=== PATIENT | male | born 1940 | race Caucasian/White ===

== ENCOUNTER 2023-09-04 11:34 | Day surgery (SDC) | payer MEDICARE ==
[2023-09-04] VITALS (12 sets, daily range): BP systolic 119–160; BP diastolic 67–101; PULSE 60–85; RESP 9–19; TEMP 98; O2SAT 92–98
[~2023-09-04] VITALS: Ht 172.7 cm; Wt 82.8 kg
[2023-09-04] MEDS ORDERED: diphenhydrAMINE 25mg capsule PO PRN (11:40)
[2023-09-04] MEDS ORDERED: normal saline 1,000 ML IV SCH (11:40)
[2023-09-04] MEDS ORDERED: iohexol 350MG/ML 100ml bottle IV ONE ×3 (12:03→14:16)
[2023-09-04] MEDS ORDERED: LIDOcaine 1% 30ml preserv. free vial ONE (12:03)
[2023-09-04] MEDS ORDERED: verapamil 2.5 mg/ml inj IV ONE (12:03)
[2023-09-04] MEDS ORDERED: iohexol 350 MG/ML 50ML vial IV ONE (12:03)
[2023-09-04] MEDS ORDERED: fentaNYL/PF 50MCG/1 ML 2ML syringe ONE (12:03)
[2023-09-04] MEDS ORDERED: heparin 1,000unit/ml 10ml vial 10 ML ONE (12:03)
[2023-09-04] MEDS ORDERED: midazolam 1 mg/ML 2ml injection ONE ×3 (12:03→14:28)
[2023-09-04] MEDS ORDERED: DICL100G59 TOP (12:07)
[2023-09-04] MEDS ORDERED: SIMV-45 PO (12:07)
[2023-09-04] MEDS ORDERED: CLOP75TA34 PO (12:07)
[2023-09-04] MEDS ORDERED: FLO0.4C PO (12:07)
[2023-09-04] MEDS ORDERED: HYDR-3972 PO (12:07)
[2023-09-04] MEDS ORDERED: LORA-268 PO (12:07)
[2023-09-04] MEDS ORDERED: METO-395 PO (12:07)
[2023-09-04] MEDS ORDERED: LOSA25TA41 PO (12:07)
[2023-09-04] MEDS ORDERED: MELO-102 PO (12:07)
[2023-09-04] MEDS ORDERED: nitroGLYCERIN 500mcg/5mL D5W 5 ML IV ONE (12:24)
[2023-09-04 12:26] LABS: ALBUMIN 3.4 G/DL (3.4-5.0); ANION GAP 9 (8-16); BLOOD UREA NITROGEN 18 MG/DL (7-18); CALCIUM 8.9 MG/DL (8.5-10.1); CHLORIDE 106 MMOL/L (99-107); CREATININE 0.75 MG/DL (0.60-1.10); GLUCOSE 97 MG/DL (70-104); SODIUM 139 MMOL/L (135-145); TOTAL CARBON DIOXIDE 24.5 MMOL/L (24-32); eCRCL 75 ML/MIN; eGFR > 90 ML/MIN
[2023-09-04 12:27] LABS: INR 0.9 INR; PROTHROMBIN TIME 10.1 SECONDS (9.0-12.0)
[2023-09-04 12:33] LABS: HEMATOCRIT 48.4 % (42.0-52.0); HEMOGLOBIN 16.4 g/dl (14.0-17.9); MEAN CORPUSCULAR HGB CONC 33.9 g/dL (33.0-36.5); MEAN PLATELET VOLUME 7.2 FL (7.4-10.4); PLATELET COUNT 175 X10'3 (140-440); WHITE BLOOD COUNT 6.9 X10'3 (4.5-11.0)
[2023-09-04 12:35] LABS: BASOPHILS % (AUTO) 0.4 % (0-1); EOSINOPHILS # (AUTO) 0.2 X10'3 (0-0.9); EOSINOPHILS % (AUTO) 2.3 % (0-6); LYMPHOCYTES # (AUTO) 1.4 X10'3 (1.1-4.8); LYMPHOCYTES % (AUTO) 19.9 % (21-51); MEAN CORPUSCULAR HEMOGLOBIN 33.3 PG (27.0-31.0); MEAN CORPUSCULAR VOLUME 98.3 FL (78-98); MONOCYTES # (AUTO) 0.7 X10'3 (0-0.9); MONOCYTES % (AUTO) 9.8 % (2-12); NEUTROPHILS # (AUTO) 4.7 X10'3 (1.8-7.7); NEUTROPHILS % (AUTO) 67.6 % (42-75); RED BLOOD COUNT 4.92 X10'6 (4.70-6.10); RED CELL DISTRIBUTION WIDTH 14.6 % (11.5-14.5)
[2023-09-04] MEDS ORDERED: heparin 1,000 UNITS/NS 500ml 500 ML ONE (14:46)
[2023-09-04] MEDS ORDERED: clopidogrel 300mg tablet ONE (15:01)
== END 2023-09-04 19:15 | disposition home or self-care (01) ==
LOC: SSTAY O 11:34
PROVIDERS: ATTEND Internal Medicine Cardiovascular Disease
DX: I35.0 Nonrheumatic aortic (valve) stenosis (principal); I25.110 Atherosclerotic heart disease of native coronary artery with unstable angina pectoris; I10 Essential (primary) hypertension; E78.5 Hyperlipidemia, unspecified; G47.30 Sleep apnea, unspecified; F12.90 Cannabis use, unspecified, uncomplicated; Z86.73 Personal history of transient ischemic attack (TIA), and cerebral infarction without residual deficits; Z79.899 Other long term (current) drug therapy; Z90.49 Acquired absence of other specified parts of digestive tract; Z96.651 Presence of right artificial knee joint
CPT/HCPCS: 36415; 80048; 83735; 85025; 85610; 93005; 93306; 93460; 99152; 99153; C1874; C9600; J1644; J2250; J3010; J3490; J7030; Q9967; A6402; A6449; C1725; C1751; C1769; C1894

== ENCOUNTER 2024-02-08 10:24 | Day surgery (SDC) | payer MEDICARE ==
[~2024-02-08] VITALS: Ht 172.7 cm; Wt 84.1 kg
[2024-02-08] VITALS (10 sets, daily range): BP systolic 114–168; BP diastolic 68–94; PULSE 75–83; RESP 12–19; TEMP 97.4; O2SAT 95–98
[~2024-02-08 10:24] MED LIST: CLOP75TA34 PO; DICL100G59 TOP; FLO0.4C PO; HYDR-3972 PO; LORA-268 PO; LOSA25TA41 PO; MELO-102 PO; METO-395 PO; SIMV-45 PO
[2024-02-08] MEDS ORDERED: VIT1CAPS9 PO (11:08)
[2024-02-08] MEDS ORDERED: ASCO100031 PO (11:08)
[2024-02-08] MEDS ORDERED: MAGN400C PO (11:08)
[2024-02-08] MEDS ORDERED: FURO20TA4 PO (11:08)
[2024-02-08] MEDS ORDERED: Calcium (11:08)
[2024-02-08] MEDS ORDERED: POTA-188 PO (11:08)
[2024-02-08] MEDS ORDERED: tumeric (11:08)
[2024-02-08] MEDS ORDERED: OMEG100037 PO (11:08)
[2024-02-08] MEDS ORDERED: ZINC220T3 PO (11:08)
[2024-02-08] MEDS ORDERED: CHOL500049 PO (11:08)
[2024-02-08] MEDS ORDERED: ASPI81TA52 PO (11:08)
[2024-02-08 11:09] LABS: BASOPHILS % (AUTO) 0.4 % (0-1); EOSINOPHILS # (AUTO) 0.1 X10'3 (0-0.9); EOSINOPHILS % (AUTO) 0.9 % (0-6); HEMATOCRIT 50.5 % (42.0-52.0); HEMOGLOBIN 17.1 g/dl (14.0-17.9); LYMPHOCYTES # (AUTO) 1.4 X10'3 (1.1-4.8); LYMPHOCYTES % (AUTO) 19.1 % (21-51); MEAN CORPUSCULAR HEMOGLOBIN 33.2 PG (27.0-31.0); MEAN CORPUSCULAR VOLUME 97.6 FL (78-98); MEAN PLATELET VOLUME 7.1 FL (7.4-10.4); MONOCYTES # (AUTO) 0.7 X10'3 (0-0.9); MONOCYTES % (AUTO) 9.6 % (2-12); NEUTROPHILS # (AUTO) 5.1 X10'3 (1.8-7.7); PLATELET COUNT 177 X10'3 (140-440); RED BLOOD COUNT 5.17 X10'6 (4.70-6.10); RED CELL DISTRIBUTION WIDTH 14.3 % (11.5-14.5); WHITE BLOOD COUNT 7.3 X10'3 (4.5-11.0)
[2024-02-08] MEDS ORDERED: sodium bicarbonate 1meq/ml syr 150 ML in dextrose 5%-water 1,000 ML IV ONE (11:10)
[2024-02-08] MEDS: diphenhydrAMINE 25mg capsule PO PRN (11:20)
[2024-02-08 11:21] LABS: APTT 27 SECONDS (22-32); PROTHROMBIN TIME 10.1 SECONDS (9.0-12.0)
[2024-02-08] MEDS: normal saline 1,000 ML IV SCH (11:21)
[2024-02-08] MEDS ORDERED: iohexol 350MG/ML 100ml bottle IV ONE ×2 (11:23→12:06)
[2024-02-08] MEDS ORDERED: verapamil 2.5 mg/ml inj IV ONE (11:23)
[2024-02-08] MEDS ORDERED: fentaNYL/PF 50MCG/1 ML 2ML syringe ONE (11:23)
[2024-02-08] MEDS ORDERED: midazolam 1 mg/ML 2ml injection ONE ×2 (11:23→11:56)
[2024-02-08] MEDS ORDERED: iohexol 350 MG/ML 50ML vial IV ONE (11:23)
[2024-02-08] MEDS ORDERED: heparin 1,000unit/ml 10ml vial 10 ML ONE (11:23)
[2024-02-08] MEDS ORDERED: LIDOcaine 1% (10mg/ml) 2ml vial ONE (11:23)
[2024-02-08] MEDS ORDERED: nitroGLYCERIN 500mcg/5mL D5W 5 ML IV ONE (11:27)
[2024-02-08] MEDS ORDERED: LIDOcaine 1% 30ml preserv. free vial ONE (11:41)
[2024-02-08 11:51] LABS: ALBUMIN 3.5 G/DL (3.4-5.0); ANION GAP 11 (8-16); BLOOD UREA NITROGEN 21 MG/DL (7-18); BUN/CREATININE RATIO 23.6 (10.0-20.0); CHLORIDE 106 MMOL/L (99-107); CREATININE 0.89 MG/DL (0.60-1.10); GLUCOSE 111 MG/DL (70-104); POTASSIUM 4.1 MMOL/L (3.5-5.1); SODIUM 140 MMOL/L (135-145); TOTAL CARBON DIOXIDE 22.7 MMOL/L (24-32); eCRCL 63 ML/MIN; eGFR 82 ML/MIN
[2024-02-08] MEDS ORDERED: heparin 1,000 UNITS/NS 500ml 500 ML ONE (12:36)
[2024-02-08] MEDS ORDERED: protamine sulfate 10mg/ml inj. ONE (12:49)
== END 2024-02-08 16:35 | disposition home or self-care (01) ==
LOC: CATH LAB 10:24 → SSTAY O 16:35
PROVIDERS: ATTEND Internal Medicine Cardiovascular Disease
DX: I25.118 Atherosclerotic heart disease of native coronary artery with other forms of angina pectoris (principal); I35.8 Other nonrheumatic aortic valve disorders; I44.7 Left bundle-branch block, unspecified; I51.7 Cardiomegaly; Z79.01 Long term (current) use of anticoagulants; Z79.899 Other long term (current) drug therapy
CPT/HCPCS: 36415; 80048; 83735; 85025; 85610; 85730; 92920; 93005; 93306; 93460; 99152; 99153; J1644; J2250; J2720; J3010; J3490; J7030; Q0163; Q9967; 96360; A4615; A6258; C1725; C1751; C1760; C1769; C1894

== ENCOUNTER 2024-02-26 10:26 | Outpatient (CLI) | payer MEDICARE ==
[~2024-02-26 10:26] MED LIST changes: +ASCO100031 PO; +ASPI81TA52 PO; +CHOL500049 PO; +Calcium; -DICL100G59 TOP; +FURO20TA4 PO; -HYDR-3972 PO; +MAGN400C PO; +OMEG100037 PO; +POTA-188 PO; +VIT1CAPS9 PO; +ZINC220T3 PO; +tumeric
[2024-02-26 11:20] LABS: HEMOGLOBIN 16.6 g/dl (14.0-17.9); MEAN PLATELET VOLUME 7.3 FL (7.4-10.4); WHITE BLOOD COUNT 5.8 X10'3 (4.5-11.0)
[2024-02-26 11:22] LABS: BASOPHILS % (AUTO) 0.4 % (0-1); EOSINOPHILS # (AUTO) 0.1 X10'3 (0-0.9); EOSINOPHILS % (AUTO) 1.5 % (0-6); HEMATOCRIT 47.3 % (42.0-52.0); LYMPHOCYTES # (AUTO) 1.5 X10'3 (1.1-4.8); MEAN CORPUSCULAR HEMOGLOBIN 34.2 PG (27.0-31.0); MEAN CORPUSCULAR VOLUME 97.8 FL (78-98); MONOCYTES # (AUTO) 0.6 X10'3 (0-0.9); MONOCYTES % (AUTO) 10.9 % (2-12); NEUTROPHILS # (AUTO) 3.5 X10'3 (1.8-7.7); NEUTROPHILS % (AUTO) 61.2 % (42-75); PLATELET COUNT 198 X10'3 (140-440); RED BLOOD COUNT 4.84 X10'6 (4.70-6.10); RED CELL DISTRIBUTION WIDTH 13.9 % (11.5-14.5)
[2024-02-26 11:36] LABS: APTT 27 SECONDS (22-32); PROTHROMBIN TIME 10.3 SECONDS (9.0-12.0)
[2024-02-26 11:47] LABS: ALANINE AMINOTRANSFERASE 30 U/L (12-78); ALBUMIN 3.4 G/DL (3.4-5.0); ALBUMIN/GLOBULIN RATIO 0.9 (1.1-1.5); ALKALINE PHOSPHATASE 100 IU/L (46-116); ANION GAP 9 (8-16); ASPARTATE AMINO TRANSFERASE 22 U/L (10-37); BILIRUBIN,TOTAL 0.4 MG/DL (0.1-1.0); BLOOD UREA NITROGEN 24 MG/DL (7-18); BUN/CREATININE RATIO 29.6 (10.0-20.0); CALCIUM 8.3 MG/DL (8.5-10.1); CHLORIDE 108 MMOL/L (99-107); CREATININE 0.81 MG/DL (0.60-1.10); GLUCOSE 128 MG/DL (70-104); POTASSIUM 4.2 MMOL/L (3.5-5.1); PRO BRAIN NATRIURETIC PEPTIDE 914 PG/ML (0-450); SODIUM 140 MMOL/L (135-145); TOTAL CARBON DIOXIDE 23.5 MMOL/L (24-32); TOTAL PROTEIN 7.3 G/DL (6.4-8.2); eGFR > 90 ML/MIN
[2024-02-26] MEDS ORDERED: IODIXANOL 320 MG/ML INFUS..BTL 100ML IV ONE (11:49)
[2024-02-26] MEDS ORDERED: metoprolol tartrate 1mg/ml inj IV ONE (12:13)
== END 2024-02-26 23:59 | disposition home or self-care (01) ==
LOC: RAD 10:26
PROVIDERS: ATTEND Internal Medicine Cardiovascular Disease
DX: N28.1 Cyst of kidney, acquired (principal); I35.0 Nonrheumatic aortic (valve) stenosis; R06.02 Shortness of breath; I65.29 Occlusion and stenosis of unspecified carotid artery; I70.0 Atherosclerosis of aorta; K57.90 Diverticulosis of intestine, part unspecified, without perforation or abscess without bleeding; M47.815 Spondylosis without myelopathy or radiculopathy, thoracolumbar region
CPT/HCPCS: 36415; 71046; 71275; 74174; 75572; 80053; 83880; 85025; 85610; 85730; J3490; Q9967

== ENCOUNTER 2024-03-24 10:51 | Inpatient (IN) | payer MEDICARE ==
[2024-03-22 11:44] LABS: BILIRUBIN,URINE NEGATIVE (Neg); CLARITY,URINE CLEAR (Clear); COLOR,URINE YELLOW (Yellow); GLUCOSE, URINE NEGATIVE (Neg); KETONES,URINE NEGATIVE (Neg); LEUKOCYTE ESTERASE ,URINE NEGATIVE (Neg); NITRITES, URINE NEGATIVE (Neg); OCCULT BLOOD,URINE NEGATIVE (Neg); PH,URINE 6.5 (4.8-8.0); PROTEIN,URINE NEGATIVE (Neg); UROBILINOGEN,URINE 0.2 E.U/dL (0.2-1.0)
[2024-03-22 11:47] LABS: BASOPHILS % (AUTO) 0.5 % (0-1); EOSINOPHILS # (AUTO) 0.1 X10'3 (0-0.9); EOSINOPHILS % (AUTO) 1.4 % (0-6); LYMPHOCYTES # (AUTO) 1.7 X10'3 (1.1-4.8); LYMPHOCYTES % (AUTO) 25.9 % (21-51); MEAN CORPUSCULAR HEMOGLOBIN 33.3 PG (27.0-31.0); MEAN CORPUSCULAR HGB CONC 34.2 g/dL (33.0-36.5); MEAN CORPUSCULAR VOLUME 97.2 FL (78-98); MEAN PLATELET VOLUME 7.1 FL (7.4-10.4); MONOCYTES # (AUTO) 0.6 X10'3 (0-0.9); MONOCYTES % (AUTO) 10.1 % (2-12); NEUTROPHILS % (AUTO) 62.1 % (42-75); PRE OP HEMATOCRIT 48.3 % (42.0-52.0); PRE OP HEMOGLOBIN 16.5 g/dL (14.0-17.9); PRE OP PLATELET COUNT 201 X10'3 (140-440); PRE OP WHITE BLOOD COUNT 6.5 10'3 (4.8-10.8); RED BLOOD COUNT 4.97 X10'6 (4.70-6.10)
[2024-03-22 11:49] LABS: UA COLLECTION TYPE CLN CATCH MIDSTREAM
[2024-03-22 11:59] LABS: PRE OP PROTIME 10.3 SECONDS (9.0-12.0)
[2024-03-22 12:09] LABS: ALBUMIN 3.4 G/DL (3.4-5.0); ALBUMIN/GLOBULIN RATIO 0.8 (1.1-1.5); ALKALINE PHOSPHATASE 80 IU/L (46-116); BLOOD UREA NITROGEN 19 MG/DL (7-18); BUN/CREATININE RATIO 21.6 (10.0-20.0); CALCIUM 8.9 MG/DL (8.5-10.1); CHLORIDE 103 MMOL/L (99-107); CREATININE 0.88 MG/DL (0.60-1.10); PRE OP ALT 33 U/L (30-65); PRE OP ANION GAP 9 (8-16); PRE OP AST 30 U/L (10-37); PRE OP BILIRUB, TOTAL 0.6 MG/DL (0.0-1.0); PRE OP GLUCOSE 108 MG/DL (70-104); PRE OP POTASSIUM 3.8 MMOL/L (3.4-5.1); PRE OP SODIUM 136 MMOL/L (135-145); PRO BRAIN NATRIURETIC PEPTIDE 1329 PG/ML (0-450); TOTAL CARBON DIOXIDE 24.1 MMOL/L (24-32); TOTAL PROTEIN 7.5 G/DL (6.4-8.2); eGFR 83 ML/MIN
[~2024-03-24] VITALS: Ht 172.7 cm; Wt 82.8 kg
[2024-03-24] VITALS (20 sets, daily range): BP systolic 117–140; BP diastolic 62–93; PULSE 59–88; RESP 13–18; TEMP 97.7–98; O2SAT 96–98
[2024-03-24] MEDS: cefazolin 2gm/D5W 100mL 100 ML IV ONE (05:30)
[2024-03-24] MEDS: nitroPRUSSIDE (NIPRIDE) (200MCG/ML) 100ML Drip IV SCH (05:30)
[2024-03-24] MEDS: phenylephrine inj 50 MG in normal saline 250ml IV solN IV SCH (05:30)
[2024-03-24] MEDS: DOCUMENT DATE & TIME OF BETA-BLOCKER PO ONE (05:30)
[~2024-03-24 10:51] MED LIST changes: +ACET-2971 PO; +CHOL100025 PO; -CHOL500049 PO; -Calcium; +LIDOcaine 1% (10mg/ml) 2ml vial ONE; -LOSA25TA41 PO; -MAGN400C PO; -MELO-102 PO; +SACU1TAB PO; +VITAMIN B12; -ZINC220T3 PO; +ondansetron/PF 4mg/2ml inj IV PRN
[2024-03-24] MEDS: aspirin 325mg tablet PO ONE (11:29)
[2024-03-24] MEDS: famotidine 20mg tablet PO ONE (11:29)
[2024-03-24] MEDS: ringers solution, lacted 1,000 ML IV SCH ×2 (11:30→14:40)
[2024-03-24] MEDS: vancomycin 1,500 MG in NS 300ml IV soln IV ONE (11:30)
[2024-03-24] MEDS ORDERED: LIDOcaine 1% (10mg/ml) 2ml vial ONE (13:56)
[2024-03-24] MEDS ORDERED: protamine sulfate 10mg/ml inj. ONE ×3 (14:29→14:31)
[2024-03-24] MEDS ORDERED: morphine 2 MG/ML inj. syringe IV PRN (14:40)
[2024-03-24] MEDS ORDERED: hydrALAZINE 20mg/ml inj. IV PRN ×2 (14:40→16:40)
[2024-03-24] MEDS: acetaminophen 1,000mg/100ml IV 100 ML IV ONE (14:40)
[2024-03-24] MEDS ORDERED: labetalol 20mg/4ml (5mg/ml) syringe IV PRN ×2 (14:40→16:40)
[2024-03-24] MEDS ORDERED: meperidine/PF 25mg/ml syringe IV PRN ×3 (14:40)
[2024-03-24] MEDS ORDERED: proCHLORperazine 10 MG/2 ml inj IV PRN ×2 (14:40→16:40)
[2024-03-24] MEDS ORDERED: morphine 4 MG/ML inj SYRINge IV PRN (14:40)
[2024-03-24] MEDS ORDERED: ondansetron/PF 4mg/2ml inj IV PRN ×2 (14:40→16:40)
[2024-03-24] MEDS ORDERED: heparin 1,000 UNITS/NS 500ml 500 ML ONE (14:55)
[2024-03-24] MEDS ORDERED: iohexol 350MG/ML 100ml bottle IV ONE (14:55)
[2024-03-24] MEDS ORDERED: fentaNYL/PF 50MCG/1 ML 2ML syringe ONE (15:03)
[2024-03-24] MEDS ORDERED: sevoflurane 250ml liquid IH ONE (15:04)
[2024-03-24] MEDS: protamine sulfate 10mg/ml inj. ONE (15:14)
[2024-03-24] MEDS ORDERED: midazolam 1 mg/ML 2ml injection ONE (15:17)
[2024-03-24] MEDS ORDERED: dexamethasone sod phosphate 4mg/ml inj. ONE (15:18)
[2024-03-24] MEDS ORDERED: ePHEDrine 50MG/ML INJ. ONE (15:18)
[2024-03-24] MEDS ORDERED: 0.9 % SODIUM CHLORIDE 10 ML VIAL ONE (15:19)
[2024-03-24] MEDS ORDERED: rocuronium 10mg/ml inj IV ONE (15:19)
[2024-03-24] MEDS ORDERED: ondansetron/PF 4mg/2ml inj ONE (15:19)
[2024-03-24] MEDS ORDERED: LIDOcaine 1%/PF 5ML 10 MG/ML VIAL ONE ×2 (15:20)
[2024-03-24] MEDS ORDERED: propofol inj 20 ML IV ONE (15:20)
[2024-03-24] MEDS ORDERED: neostigmine methylsulfate 1 MG/ML 10ml vial ONE (16:19)
[2024-03-24] MEDS ORDERED: glycopyrrolate 0.2mg/ml inj ONE (16:19)
[2024-03-24] MEDS ORDERED: heparin 1,000unit/ml 10ml vial 10 ML ONE (16:35)
[2024-03-24] MEDS: normal saline 1000ml 1,000 ML IV SCH (16:40)
[2024-03-24] MEDS ORDERED: pantoprazole 40mg Tablet.DR PO PRN (16:40)
[2024-03-24] MEDS ORDERED: ALPRAZolam 0.25mg tablet PO PRN (16:40)
[2024-03-24] MEDS ORDERED: acetaminophen 325mg tablet PO PRN (16:40)
[2024-03-24] MEDS ORDERED: potassium Cl 40MEQ/270ML bag 250 ML IV PRN (16:40)
[2024-03-24] MEDS ORDERED: potassium Cl 40MEQ/1/2NS 520ml 520 ML IV PRN (16:40)
[2024-03-24] MEDS ORDERED: potassium Cl 20mEq/100mL bag 100 ML IV PRN (16:40)
[2024-03-24] MEDS ORDERED: magnesium 4gm in 100ml NS 100 ML IV PRN (16:40)
[2024-03-24] MEDS ORDERED: diphenhydrAMINE 25mg capsule PO PRN (16:40)
[2024-03-24] MEDS ORDERED: docusate sod 100mg capsule PO PRN (16:40)
[2024-03-24] MEDS ORDERED: magnesium 2GM in 50ml NS 50 ML IV PRN (16:40)
[2024-03-24] MEDS ORDERED: potassium CL 10mEq/100ml bag 100 ML IV PRN (16:40)
[2024-03-24] MEDS ORDERED: potassium Cl 20 mEq SR tablet PO PRN (16:40)
[2024-03-24] MEDS: LORazepam 0.5 MG tablet PO SCH (20:12)
[2024-03-24] MEDS: atorvastatin 20mg tablet PO SCH (20:12)
[2024-03-24] MEDS: acetaminophen 325mg tablet PO SCH (20:12)
[2024-03-24] MEDS: sacubitril/valsartan 24mg-26mg tablet PO SCH (20:13)
[2024-03-24] MEDS: vancomycin/NS 1 GM ADD-VANTAGE 250 ML IV SCH (20:13)
[2024-03-25] MEDS: sod chloride 0.9% 10ml flush syringe IV SCH (00:59)
[2024-03-25] MEDS: ceFAZolin 1GM/D5W- ADD-VANTAGE 50 ML IV SCH (00:59)
[2024-03-25 02:00] VITALS: BP 127/81; PULSE 86; RESP 17; TEMP 97.5; O2SAT 94
[2024-03-25 02:15] VITALS: PULSE 78
[2024-03-25] MEDS: HYDROcodone/acetaminophen 5mg/325mg tablet PO PRN (02:28)
[2024-03-25 03:45] VITALS: BP 127/81; PULSE 86; RESP 17
[2024-03-25 06:00] VITALS: BP 121/75; PULSE 92; RESP 16; TEMP 97.5; O2SAT 91
[2024-03-25 06:41] LABS: BASOPHILS % (AUTO) 0.1 % (0-1); EOSINOPHILS % (AUTO) 0 % (0-6); HEMATOCRIT 44.6 % (42.0-52.0); HEMOGLOBIN 15.3 g/dl (14.0-17.9); LYMPHOCYTES % (AUTO) 10.9 % (21-51); MEAN CORPUSCULAR HGB CONC 34.2 g/dL (33.0-36.5); MEAN CORPUSCULAR VOLUME 96.6 FL (78-98); MEAN PLATELET VOLUME 7.4 FL (7.4-10.4); MONOCYTES # (AUTO) 0.6 X10'3 (0-0.9); MONOCYTES % (AUTO) 6.4 % (2-12); NEUTROPHILS # (AUTO) 7.7 X10'3 (1.8-7.7); NEUTROPHILS % (AUTO) 82.6 % (42-75); PLATELET COUNT 166 X10'3 (140-440); RED BLOOD COUNT 4.62 X10'6 (4.70-6.10); RED CELL DISTRIBUTION WIDTH 14.1 % (11.5-14.5); WHITE BLOOD COUNT 9.3 X10'3 (4.5-11.0)
[2024-03-25 06:58] LABS: ALANINE AMINOTRANSFERASE 25 U/L (12-78); ALBUMIN 3.2 G/DL (3.4-5.0); ALBUMIN/GLOBULIN RATIO 0.9 (1.1-1.5); ALKALINE PHOSPHATASE 66 IU/L (46-116); ANION GAP 5 (8-16); ASPARTATE AMINO TRANSFERASE 19 U/L (10-37); BILIRUBIN,TOTAL 0.5 MG/DL (0.1-1.0); BLOOD UREA NITROGEN 20 MG/DL (7-18); BUN/CREATININE RATIO 22.5 (10.0-20.0); CALCIUM 8.8 MG/DL (8.5-10.1); CHLORIDE 108 MMOL/L (99-107); CREATININE 0.89 MG/DL (0.60-1.10); GLUCOSE 135 MG/DL (70-104); POTASSIUM 4.2 MMOL/L (3.5-5.1); PRO BRAIN NATRIURETIC PEPTIDE 1356 PG/ML (0-450); SODIUM 137 MMOL/L (135-145); TOTAL CARBON DIOXIDE 24.3 MMOL/L (24-32); TOTAL PROTEIN 6.8 G/DL (6.4-8.2); eCRCL 63 ML/MIN; eGFR 82 ML/MIN
[2024-03-25] MEDS ORDERED: aspirin 81mg, enteric-coated 1 TAB TABLET.DR PO SCH (08:00)
[2024-03-25] MEDS: potassium chloride 10mEq ER tablet PO SCH (08:58)
[2024-03-25] MEDS: tamsulosin 0.4mg capsule PO SCH (08:58)
[2024-03-25] MEDS: furosemide 20MG tablet PO SCH (08:58)
[2024-03-25] MEDS: metoprolol succinate 25mg (24-HOUR) SR. Tablet PO SCH (08:58)
[2024-03-25] MEDS: cholecalciferol (vitamin D3) 1,000 unit (25mcg) tablet PO SCH (08:59)
[2024-03-25] MEDS: aspirin 81mg tab.chew PO SCH (08:59)
[2024-03-25] MEDS: clopidogrel 75mg tablet PO SCH (08:59)
[2024-03-25 11:00] VITALS: BP 136/75; PULSE 88; RESP 14; TEMP 97.8; O2SAT 95
[2024-03-25 15:00] VITALS: BP 132/58; PULSE 85; RESP 19; TEMP 98.6; O2SAT 94
== END 2024-03-25 18:00 | disposition home or self-care (01) | DRG 266 ==
LOC: PAS IN 10:51 → PCU 3S 18:11
PROVIDERS: ADMIT Internal Medicine Cardiovascular Disease; ATTEND Internal Medicine Cardiovascular Disease
PROC: 03HY32Z Insertion of Monitoring Device into Upper Artery, Percutaneous Approach (ICD-10-PCS; 2024-03-24)
PROC: B41G1ZZ Fluoroscopy of Left Lower Extremity Arteries using Low Osmolar Contrast (ICD-10-PCS; 2024-03-24)
PROC: B41F1ZZ Fluoroscopy of Right Lower Extremity Arteries using Low Osmolar Contrast (ICD-10-PCS; 2024-03-24)
PROC: B3101ZZ Fluoroscopy of Thoracic Aorta using Low Osmolar Contrast (ICD-10-PCS; 2024-03-24)
PROC: B24BZZ4 Ultrasonography of Heart with Aorta, Transesophageal (ICD-10-PCS; 2024-03-24)
PROC: 02RF38N Replacement of Aortic Valve with Zooplastic Tissue, using Rapid Deployment Technique, Percutaneous Approach (ICD-10-PCS; principal; 2024-03-24 15:04)
DX: I35.0 Nonrheumatic aortic (valve) stenosis (principal); Z00.6 Encounter for examination for normal comparison and control in clinical research program; I50.43 Acute on chronic combined systolic (congestive) and diastolic (congestive) heart failure; I11.0 Hypertensive heart disease with heart failure; E78.5 Hyperlipidemia, unspecified; I25.10 Atherosclerotic heart disease of native coronary artery without angina pectoris; I73.9 Peripheral vascular disease, unspecified; Z86.73 Personal history of transient ischemic attack (TIA), and cerebral infarction without residual deficits
CPT/HCPCS: 33361; 36415; 71045; 76937; 80053; 81003; 82948; 83735; 83880; 85025; 85347; 85610; 85730; 86885; 86900; 86901; 86920; 87081; 93005; 93308; 93325; 93355; A4615; A4618; A6258; A6449; C1725; C1756; C1760; C1769; C1894; G0378; J0690; J1100; J1644; J2250; J2371; J2405; J2704; J2710; J2720; J3010; J3370; J3490; J7040; J7050; J7120; Q9967

== ENCOUNTER 2025-05-18 14:06 | Outpatient (CLI) | payer MEDICARE ==
[~2025-05-18 14:06] MED LIST changes: -FLO0.4C PO; -LIDOcaine 1% (10mg/ml) 2ml vial ONE; +TAMS-55 PO; -ondansetron/PF 4mg/2ml inj IV PRN
--- NOTE | 2025-05-18 15:13 | ELECTROCARDIOGRAPH REPORT ---
[facility] Test Date: 2025-05-18 Test Time: 14:56:32 Pat Name: DEIRDRE CONDON Department: PRE/OP CARDIOLOGY [id number] Room: Gender: M Pharmacy Clinical Coordinator: : 1940 Requested By: MARQUES SOTO Order Number: [id number] Reading MD: Dr. CHRIS Meyer Measurements Intervals [place] Rate: 71 P: 54 [place]: 191 QRS: -60 QRSD: 124 T: -12 QT: 374 QTc: 407 Interpretive Statements Sinus rhythm Atrial premature complex Left bundle branch block Electronically Signed On 05-19-2025 17:31:[address] CHRIS Meyer Please click the below link to view image of tracing.
--- NOTE | 2025-05-18 16:53 | CARDIOLOGY REPORT ---
APPROVED REPORT EXAM: Comprehensive 2D, Doppler, and color-flow Echocardiogram. Patient Location: OUT-PATIENT Blood Pressure: 138/77 mmHg Heart Rate: 84 bpm Indications 1 YEAR FOLLOW UP 26 mm Grajeda Kalina 3 Ultra RESILIA Bioprosthetic TAVR BIOPSYCHOLOGIST: Julian Mueller MD Previous ECHO: 03/25/24, [facility], EF: 50; KRISHNA: 3.32; GRAD: 16 /9; PKV: 1.98; trivial 2D Dimensions LA Diam4.5 cm IVSd 1.0 (0.7-1.1cm) LVDd 4.3 cm PWd 1.0 (0.7-1.1cm) IVSs 1.3 (0.8-1.2cm) LVDs 2.9 (2.5-4.0cm) PWs 1.5 (0.8-1.2cm) LVOT Diameter 2.59 (1.8-2.4cm) LVEF(%) 63.3 (>50%) Ao Asc Diam.2.97 cm IVC 14.36 mmFS (%) 34.1 % SV 53.8 ml M-Mode Dimensions Aortic Root 3.29 (2.2-3.7cm) MV EPSS 1.5 (<0.5cm) Aortic Valve AoV Peak Shaheen. 265.8 cm/s AoV VTI 47.6 cm AO Peak GR. 28.3 mmHg AO Mean GR. 16 mmHg LVOT VTI 29.92 cm LVOT Peak Shaheen. 154.2 cm/s KRISHNA (VMAX) 3.05 cm2 KRISHNA (VTI) 3.31 cm2 Mitral Valve MV E Velocity 55.6 cm/s MV DECEL TIME 271 ms MV A Velocity 122.4 cm/s MV PHT 70 ms E/A Ratio 0.5 MVA (PHT) 3.16 cm2 TDI E/Medial E' 8.8 Pulmonary Valve PV Peak Velocity 132.5 cm/s PV Peak Grad. 7 mmHg Tricuspid Valve TR P. Velocity 222 cm/s RAP ESTIMATE 10 mmHg TR Peak Gr. 20 mmHg RVSP 30 mmHg
== END 2025-05-18 23:59 | disposition home or self-care (01) ==
LOC: RAD 14:06
PROVIDERS: ATTEND Internal Medicine Cardiovascular Disease
DX: Z48.812 Encounter for surgical aftercare following surgery on the circulatory system (principal); Z95.2 Presence of prosthetic heart valve; I49.1 Atrial premature depolarization; J98.4 Other disorders of lung
CPT/HCPCS: 93005; 93306